=== PATIENT | female | born 1930 | race Caucasian/White ===

== ENCOUNTER 2017-12-01 19:37 | Emergency (ER) | payer MEDICARE, BC ==
[~2017-12-01] VITALS: Ht 152.4 cm; Wt 65.8 kg
[~2017-12-01 19:37] MED LIST: LISINOPRIL20 MG; MOTION RELIEF25 MG
[2017-12-01 20:04] VITALS: BP 172/73
== END 2017-12-01 20:08 | disposition home or self-care (01) ==
LOC: M.ERS 19:37
DX: S40.011A Contusion of right shoulder, initial encounter (principal); X58.XXXA Exposure to other specified factors, initial encounter; Y93.89 Activity, other specified; Y92.89 Other specified places as the place of occurrence of the external cause; Y99.8 Other external cause status

== ENCOUNTER 2018-02-19 17:34 | Inpatient (IN) | payer MEDICARE, BC, OTHER ==
[~2018-02-19] VITALS: Ht 152.4 cm; Wt 63.0 kg
[~2018-02-19 17:34] MED LIST changes: -LISINOPRIL20 MG; +LISINOPRIL20 MG PO
[2018-02-19 17:39] VITALS: BP 188/107
[2018-02-19 17:58] LABS: ABSOLUTE EOSINOPHILS 0.1 thou/uL (0.0-0.7); ABSOLUTE LYMPHOCYTES 1.1 thou/uL (0.8-5.3); ABSOLUTE MONOCYTES 0.4 thou/uL (0.0-1.2); ABSOLUTE NEUTROPHILS 3.3 thou/uL (1.6-8.1); BASOPHILS 0.8 %; EOSINOPHILS 2.3 %; HEMATOCRIT 48.3 % (37.0-47.0); HEMOGLOBIN 16.3 gm/dL (12.0-15.0); LYMPHOCYTES 22.5 %; MCH 30.2 pg (26.0-34.0); MCHC 33.8 g/dL (28.0-37.0); MCV 89.2 fL (80.0-100.0); MONOCYTES 8.1 %; MPV 7.8 fl. (7.2-11.1); NUCLEATED RBCS 0 /100WBC; PLATELET COUNT* 182 thou/uL (150-400); POLYS 66.3 %; RBC 5.42 mil/uL (4.20-5.00); RDW-CV 13.8 % (10.5-14.5)
[2018-02-19 18:07] LABS: ANION GAP 9 mmol/L (7-16); BUN 22 mg/dL (7-18); CALCIUM 9.6 mg/dL (8.5-10.1); CHLORIDE 106 mmol/L (98-107); CO2 28 mmol/L (21-32); GLUCOSE 176 mg/dL (70-99); POTASSIUM 3.9 mmol/L (3.5-5.1); SODIUM 143 mmol/L (136-145)
[2018-02-19 18:10] LABS: APTT 26.1 Seconds (25.0-31.3); PROTIME 10.1 Seconds (9.20-11.50)
[2018-02-19 18:18] LABS: ALBUMIN 3.8 g/dL (3.4-5.0); ALKALINE PHOSPHATASE 91 U/L (46-116); LIPASE 222 U/L (73-393); NT-PRO BRAIN NAT PEPTIDE 259 pg/mL (<300); SGOT 21 U/L (15-37); SGPT 35 U/L (30-65); TOTAL BILIRUBIN 0.4 mg/dL (<0.1-1.0); TOTAL PROTEIN 7.3 g/dL (6.4-8.2); TROPONIN-I LEVEL <0.06 ng/mL (<0.06)
[2018-02-19 19:30] VITALS: BP 136/53
--- NOTE | 2018-02-19 19:45 | NUR ---
RECEIVED REPORT FROM ER. TO ROOM, GAIT STEADY FROM CART TO BED. TELEMETRY APPLIED SHOWING SR. MARINET AT BEDSIDE. REVIEWED HOME MEDS. SEE ADMISSION ASSESSMENT AND HX.
[2018-02-19 20:30] VITALS: BP 153/56
[2018-02-19] MEDS ORDERED: BENADRYL25 MG PO (21:09)
[2018-02-19] MEDS ORDERED: MIRALAX17 GM PO (21:10)
--- NOTE | 2018-02-19 21:15 | NUR ---
PT INTO A-FIB WITH RVR AGAIN, ATTEMPTED VEGAL NOT NOT EFFECTIVE. PT RETURNED TO NSR ON HER OWN WITH RATE 68-79. WILL CONT TO MONITOR. CARDIZEM GTT HELD AT THIS TIME.
[2018-02-20] VITALS: BP 137/76
[2018-02-20 04:00] VITALS: BP 144/62
--- NOTE | 2018-02-20 05:45 | NUR ---
AWAKE MOST OF NIGHT. IVF INFUSING ORDERED. PT HAVING FREQ URINATION. PT SUSTAINED A-FIB WITH RATE 120-140'S. CARDIZEM INFUSION STARTED AT 0120 AT 5 MG/HR. CONVERTED TO SR AT APPROX 0140. MAINTAINED SR WITH CARDIZEM GTT. HS GOALS OF SAFETY ACHIEVED BUT NOT REST. HOURLY ROUNDING OBSERVED.
[2018-02-20 08:11] VITALS: BP 169/70
[2018-02-20 09:17] LABS: CHOLESTEROL 255 mg/dL (<200); HDL CHOLESTEROL 49 mg/dL (>40); LDL CHOLESTEROL 168 mg/dL (<100); SERUM ASSESSMENT Clear; TC:HDL 5.2 Ratio (Not establshd); TRIGLYCERIDE 194 mg/dL (<150); VLDL 39 mg/dL (<40)
[2018-02-20] MEDS ORDERED: DILTIAZEM 24HR180 M1 PO (09:41)
[2018-02-20] MEDS ORDERED: LIPITOR10 MG PO (09:41)
[2018-02-20] MEDS ORDERED: ELIQUIS5 MG PO (09:41)
[2018-02-20] MEDS ORDERED: ASPIR 8181 MG PO (09:41)
--- NOTE | 2018-02-20 10:49 | EKG ---
[place] [address] ELECTROCARDIOGRAM REPORT Name: JEWELS CASTILLO Room: [address] ADM IN M.R.#: [id number] Admission: 02/19/18 Attend Phys: Remigio Jean Discharge: Date of : [birth year] Report #: [id number] THIS REPORT FOR: //name// [facility] ED Test Date: 2018-02-19 Test Time: 17:40:23 Pat Name: JEWELS CASTILLO Department: Room: [facility] Gender: F Manager Utility: Aaron TRIMBLE : 1930 Requested By: Martina Dumont Order Number: [id number] MD: Ag Nayak Measurements Intervals [place] Rate: 142 P: NC: QRS: -21 QRSD: 100 T: 95 QT: 289 QTc: 444 Interpretive Statements Atrial fibrillation with rapid V-rate Borderline left axis deviation Anteroseptal infarct, old possible Repolarization abnormality, prob rate related No previous ECG available for comparison Electronically Signed On 02-20-2018 10:49:45 PIPING DESIGNER by Ag Nayak [email or web address] <ELECTRONICALLY SIGNED> By: Ag Nayak MD, FAC 02/20/18 1049 1740 1740 Ag Nayak MD, [facility] /EPI
--- NOTE | 2018-02-20 10:51 | EKG ---
[place] [address] ELECTROCARDIOGRAM REPORT Name: JEWELS CASTILLO Room: [address] ADM IN M.R.#: [id number] Admission: 02/19/18 Attend Phys: Remigio Jean Discharge: Date of : [birth year] Report #: [id number] THIS REPORT FOR: //name// [facility] ED Test Date: 2018-02-19 Test Time: 18:48:05 Pat Name: JEWELS CASTILLO Department: Room: [facility] Gender: F Core Microarchitect: Aaron TRIMBLE : 1930 Requested By: Martina Dumont Order Number: [id number] MD: Ag Nayak Measurements Intervals [place] Rate: 67 P: 60 NC: 174 QRS: -28 QRSD: 79 T: 62 QT: 412 QTc: 435 Interpretive Statements Sinus rhythm RSR' in V1 or V2, right VCD or RVH LVH by voltage No previous ECG available for comparison Electronically Signed On 02-20-2018 10:51:05 DRIER BELT CONVEYOR by Ag Nayak [email or web address] <ELECTRONICALLY SIGNED> By: Ag Nayak MD, [facility] 02/20/18 1051 1848 1848 Ag Nayak MD, [facility] /EPI
--- NOTE | 2018-02-20 12:23 | NUR ---
VSS, ASSUMED CARE OF PT THIS AM, ASSESSMENT PERFORMED AND CHARTED, FALL PRECAUTIONS IN PLACE AND CALL LIGHT IN REACH, PT IS A&O4, ON RA, IS TRACING SR ON THE MONITOR AT THIS TIME, PT GOAL IS TO COMPLETED STRESS TEST, PT FAN ANY PAIN AND IS UP AD KANG, WILL FOLLOW WITH PLAN OF CARE.
--- NOTE | 2018-02-20 15:17 | NUR ---
Pt is A&O. Resides at home with her kids. Independent. No DME. Pt will dc home today pending stress test results. No needs.
[2018-02-20 16:03] VITALS: BP 100/58
--- NOTE | 2018-02-20 16:25 | CARDNUC ---
[place] [address] CARDIAC NUCLEAR IMAGING REPORT Name: JEWELS CASTILLO Room: [address] IN [facility]#: [id number] Admission: 02/19/18 Attend Phys: Ellen Garnica Discharge: Date of : [birth year] Date of Service: 02/20/18 1625 Report #: [id number] THIS REPORT FOR: //name// APPROVED REPORT Imaging Protocol: Rest Tc-99m/Stress Tc-99m 1 day Study performed: 02/20/2018 08:32:00 Indication: afib/rvr Patient Location: In-Patient Room #: 210 Stress Tech: Lindsey Leahy Stress Nurse: Mary Duarte RN NM Tech:HUMBERTO Sanchez Ht: 5 ft 0 in Wt: 139 lbs BSA: 1.60 m2 BMI: 27.14 Medical History Medical History: new onset afib; aortic stenosis Medications: diltiazem, lisinopril, abixaban Allergies: NKDA Cardiac Risk Factors: Age, HTN, HLP Previous Cardiac Procedures: none Resting Data Rest SPECT myocardial perfusion imaging was performed in supine position 30 minutes following the intravenous injection of 12.0 mCi of Tc-99m Sestamibi. Time of rest injection: 1010 Date: 02/20/2018 Time of rest imagin The images were gated to evaluate regional wall motion and calculate left ventricular ejection fraction. Administration Route: IV Administration Site: Left AC Pharmacologic Stress Pharmacologic stress test was performed by injecting Regadenoson 0.4 mg IV push over 10-15 seconds immediately followed by the intravenous injection of 30.7 mCi of Tc-99m Sestamibi. Time of stress injection: 1135 Time of stress imagin Administration Route: IV Administration Site: Left AC Gated Stress SPECT was performed 40 [place] [address] CARDIAC NUCLEAR IMAGING REPORT Name: JEWELS CASTILLO Room: [address] IN ..#: [id number] Admission: 02/19/18 Attend Phys: Ellen Garnica Discharge: Date of : [birth year] Date of Service: 02/20/18 1625 Report #: [id number] injection. The images were gated to evaluate regional wall motion and calculate left ventricular ejection fraction. Stress only was performed in the Supine position. Stress Test Details Stress Test: Pharmacologic stress testing performed using 0.4 mg of regadenoson per 5 mL given IV over 10 seconds. HR Max Heart Rate (APMHR): 131 bpm Resting HR: 69 bpm Target HR (85% APMHR): 111 bpm Max HR Achieved: 97 bpm % of APMHR: 74 Recovery HR: 90 bpm BP Resting BP: 188/78 mmHg Max BP: 199/65 mmHg Recovery BP: 182/72 mmHg ECG Resting ECG: Sinus Rhythm Stress ECG: Sinus Rhythm ST Change: None Arrhythmia: None Recovery ECG: Sinus Rhythm Recovery ST Change: None, None Recovery Arrhythmia: None Clinical Reason for Termination: Completed protocol Stress Symptoms: mild SOA and chest tightness that resolved in recovery period The patient tolerated Lexiscan infusion without significant symptoms. Stress ECG Conclusion The baseline 12-lead EKG shows sinus rhythm without significant ST or T wave abnormality. EKGs obtained during and post Lexiscan infusion show sinus rhythm with no significant ST or T wave changes when compared to baseline. There were no stress-induced arrhythmias. Study Quality Study: Good Artifact: [place] [address] CARDIAC NUCLEAR IMAGING REPORT Name: JEWELS CASTILLO Room: [address]#: [id number] Admission: 02/19/18 Attend Phys: Ellen Garnica Discharge: Date of : [birth year] Date of Service: 02/20/18 1625 Report #: [id number] Study Data At rest, the left ventricular ejection fraction was 84%.. Post stress, the left ventricular ejection was 80%.. TID = 1.09. Perfusion Normal left ventricular perfusion. Wall Motion Normal left ventricular wall motion. Nuclear Conclusion ECG Findings: negative for ischemia Clinical Findings: negative for ischemia Nuclear Findings: negative for ischemia Exercise Capacity: not assessed Left Ventricular Function: normal Risk Study: low Myocardial perfusion images show no defect to suggest infarct or ischemia. Left ventricular systolic function appears normal on gated studies. This is a low risk study. <Conclusion> The baseline 12-lead EKG shows sinus rhythm without significant ST or T wave abnormality. EKGs obtained during and post Lexiscan infusion show sinus rhythm with no significant ST or T wave changes when compared to baseline. There were no stress-induced arrhythmias. <ELECTRONICALLY SIGNED> By: Magnus Ferro MD, FACC 02/20/18 1625 1625 1625 Magnus Ferro MD, FACC /INF
--- NOTE | 2018-02-20 17:26 | 2DMMODE ---
[place] [address] 2 D/M-MODE ECHOCARDIOGRAM Name: JEWELS CASTILLO Room: [address] IN [facility]#: [id number] Admission: 02/19/18 Attend Phys: Ellen Garnica Discharge: Date of : [birth year] Date of Service: 02/20/18 1726 Report #: [id number] THIS REPORT FOR: //name// APPROVED REPORT Study performed: 02/20/2018 10:24:41 EXAM: Comprehensive 2D, Doppler, and color-flow Echocardiogram Patient Location: In-Patient Room #: [facility] Status: routine BSA: 1.60 HR: 70 bpm BP: 169/70 mmHg Rhythm: NSR Other Information Study Quality: Good Indications Atrial Fibrillation Chest Pain 2D Dimensions IVSd: 9.03 (7-11mm) LVOT Diam: 18.79 (18-24mm) LVDd: 38.95 mm PWd: 9.03 (7-11mm) Ascending Ao: 25.77 (22-36mm) LVDs: 24.93 (25-40mm) Aortic Root: 27.12 mm Volumes Left Atrial Volume (Systole) LA ESV Index: 27.80 mL/m2 Aortic Valve AoV Peak Ty.: 2.74 m/s AO Peak Gr.: 30.13 mmHg LVOT Max P.01 mmHg AO Mean Gr.: 17.27 mmHg LVOT Mean P.79 mmHg LVOT Max V: 1.23 m/s AO V2 VTI: 65.61 cm LVOT Mean V: 0.76 m/s DIONISIO (VTI): 1.24 cm2 LVOT V1 VTI: 29.28 cm Mitral Valve MV Mean Gr.: 5.48 mmHg E/A Ratio: 1.16 MV Decel. Time: 351.14 [place] [address] 2 D/M-MODE ECHOCARDIOGRAM Name: JEWELS CASTILLO Room: [address] IN M.R.#: [id number] Admission: 02/19/18 Attend Phys: Ellen Garnica Discharge: Date of : [birth year] Date of Service: 02/20/18 1726 Report #: [id number] MV E Max Ty.: 1.81 m/s MV PHT: 101.83 ms MVA (PHT): 2.16 cm2 TDI E/Lateral E': 25.86 E/Medial E': 25.86 Medial E' Ty.: 0.07 m/s Lateral E' Ty.: 0.07 m/s Pulmonary Valve PV Peak Ty.: 0.90 m/s PV Peak Gr.: 3.27 mmHg Tricuspid Valve RAP Estimate: 5.00 mmHg TR Peak Gr.: 36.55 mmHg RVSP: 41.00 mmHg PA Pressure: 41.00 mmHg Left Ventricle The left ventricle is normal size. There is normal LV segmental wall motion. There is normal left ventricular wall thickness. Left ventricular systolic function is normal. LVEF is 65-70%. Severe diastolic dysfunction is present (restrictive filling). Right Ventricle The right ventricle is normal size. The right ventricular systolic function is normal. Atria The left atrium size is normal. The right atrium size is normal. Aortic Valve Moderate aortic valve sclerosis. Trace aortic regurgitation. Moderate aortic stenosis. Mitral Valve Moderate mitral annular calcification. Trace mitral regurgitation. Mild mitral stenosis. Tricuspid Valve The tricuspid valve is normal in structure. Trace tricuspid regurgitation. Moderate pulmonary hypertension. Pulmonic Valve The pulmonary valve is normal in structure. Trace pulmonic reg[place] [address] 2 D/M-MODE ECHOCARDIOGRAM Name: JEWELS CASTILLO Room: [address] IN [facility].#: [id number] Admission: 02/19/18 Attend Phys: Ellen Garnica Discharge: Date of : [birth year] Date of Service: 02/20/18 1726 Report #: [id number] Great Vessels The aortic root is normal in size. IVC is normal in size and collapses >50% with inspiration. Pericardium There is no pericardial effusion. <Conclusion> The left ventricle is normal size. There is normal left ventricular wall thickness. Left ventricular systolic function is normal. LVEF is 65-70%. Severe diastolic dysfunction is present (restrictive filling). Moderate aortic stenosis. Moderate mitral annular calcification. Mild mitral stenosis. Trace tricuspid regurgitation. Moderate pulmonary hypertension. IVC is normal in size and collapses >50% with inspiration. <ELECTRONICALLY SIGNED> By: Magnus Ferro MD, FACC 02/20/181725 25 25 Magnus Ferro MD, FACC /INF
[2018-02-20 17:35] VITALS: BP 100/58
--- NOTE | 2018-02-20 18:04 | NUR ---
VSS, COMPLETED AND FILLED OUT D/C ORDERS, PROVITED SCRCRIPTS, TOOK OUT IV, AND TELE MONITOR, PROVITED D/C INSTRUCTIONS, PT GATHERED BELONGINGS AND WAS TAKEN OUT BY STAFF ON WHEEL CHAIR TO CAR, HOURLY TOUNDS COMPLETED AND PT DENIESA ANY QUESTIONS AT TIME OF D/C
== END 2018-02-20 18:20 | disposition home or self-care (01) | DRG 309 ==
LOC: M.ERS 17:34 → M.2W 18:35 → M.TBA-ER 18:35 → M.2W 20:22
PROVIDERS: Nurse Practitioner Family; Personal Emergency Response Attendant; ADMIT Internal Medicine
DX: I48.0 Paroxysmal atrial fibrillation (principal); D68.69 Other thrombophilia; I35.0 Nonrheumatic aortic (valve) stenosis; I20.9 Angina pectoris, unspecified; I10 Essential (primary) hypertension; I47.1 Supraventricular tachycardia; I48.92 Unspecified atrial flutter; E78.5 Hyperlipidemia, unspecified; Z79.82 Long term (current) use of aspirin; Z79.899 Other long term (current) drug therapy

== ENCOUNTER 2018-03-18 15:42 | Inpatient (IN) | payer MEDICARE, BC, OTHER ==
[~2018-03-18] VITALS: Ht 152.4 cm; Wt 62.1 kg
[~2018-03-18 15:42] MED LIST changes: +ASPIR 8181 MG PO; +BENADRYL25 MG PO; +DILTIAZEM 24HR180 M1 PO; +ELIQUIS5 MG PO; +LIPITOR10 MG PO; +MIRALAX17 GM PO
[2018-03-18 15:49] VITALS: BP 171/88
[2018-03-18] MEDS ORDERED: TYLENOL325 MG PO (15:54)
[2018-03-18 16:06] LABS: ABSOLUTE BASOPHILS 0.1 thou/uL (0.0-0.2); ABSOLUTE EOSINOPHILS 0.1 thou/uL (0.0-0.7); ABSOLUTE LYMPHOCYTES 1.5 thou/uL (0.8-5.3); ABSOLUTE MONOCYTES 0.6 thou/uL (0.0-1.2); ABSOLUTE NEUTROPHILS 4.3 thou/uL (1.6-8.1); BASOPHILS 0.8 %; EOSINOPHILS 1.7 %; HEMATOCRIT 47.6 % (37.0-47.0); LYMPHOCYTES 23.2 %; MCH 30.3 pg (26.0-34.0); MCHC 33.5 g/dL (28.0-37.0); MCV 90.4 fL (80.0-100.0); MONOCYTES 8.6 %; MPV 7.7 fl. (7.2-11.1); NUCLEATED RBCS 0 /100WBC; PLATELET COUNT* 198 thou/uL (150-400); POLYS 65.7 %; RBC 5.27 mil/uL (4.20-5.00); RDW-CV 13.9 % (10.5-14.5); WBC 6.5 thou/uL (4.0-11.0)
[2018-03-18 16:18] LABS: APTT 27.3 Seconds (25.0-31.3); PROTIME 10.4 Seconds (9.20-11.50)
[2018-03-18 16:25] LABS: ANION GAP 11 mmol/L (7-16); BUN 25 mg/dL (7-18); CALCIUM 9.8 mg/dL (8.5-10.1); CHLORIDE 105 mmol/L (98-107); CO2 26 mmol/L (21-32); GLUCOSE 145 mg/dL (70-99); POTASSIUM 3.7 mmol/L (3.5-5.1); SODIUM 142 mmol/L (136-145)
[2018-03-18 16:44] LABS: ALBUMIN 4.3 g/dL (3.4-5.0); ALKALINE PHOSPHATASE 112 U/L (46-116); CK-MB MASS 1.6 ng/mL (<0.5-3.6); LIPASE 236 U/L (73-393); MAGNESIUM 2.2 mg/dL (1.8-2.4); NT-PRO BRAIN NAT PEPTIDE 206 pg/mL (<300); SGOT 22 U/L (15-37); SGPT 34 U/L (30-65); TOTAL BILIRUBIN 0.2 mg/dL (<0.1-1.0); TOTAL PROTEIN 7.5 g/dL (6.4-8.2); TROPONIN-I LEVEL <0.06 ng/mL (<0.06)
[2018-03-18 17:30] VITALS: BP 145/77
--- NOTE | 2018-03-18 18:31 | NUR ---
PATIENT PRESENTED TO 230 THIS EVENING FROM ER. PATIENT IS ALERT AND ORIENTED X 4. SHE DENIES PAIN AND DISCOMFORT. PATIENT PLACED ON TELE MONITOR. ORIENTED TO ROOM AND PROCEDURES. PATIENT EDUCATED ON FALL PROTOCAL. DIET ORDERED. TELE SHOWS A FLUTTER WITH OCCASIONAL VENTRICULAR ECTOPIES. RESTING IN BED AT THIS TIME. PLACED ON O2 AT 2 LITERS. PATIENT IS UP TO THE BSC WITH STANDBY ASSIST.
[2018-03-18 20:00] VITALS: BP 140/56
[2018-03-19] VITALS: BP 134/50
[2018-03-19 00:07] LABS: URINE BILIRUBIN NEGATIVE (Negative); URINE BLOOD NEGATIVE (Negative); URINE CLARITY CLEAR; URINE COLOR YELLOW; URINE GLUCOSE-RANDOM NEGATIVE (Negative); URINE KETONES NEGATIVE (Negative); URINE NITRITE-REFLEX NEGATIVE (Negative); URINE PROTEIN NEGATIVE (Negative); URINE SPECIFIC GRAVITY 1.015 (1.005-1.030); URINE UROBILINOGEN 0.2 E.U./dl (0.2-1.0)
[2018-03-19 00:08] LABS: URINE LEUKOCYTES-REFLEX 2+ (Negative)
[2018-03-19 00:21] LABS: AMP/METHAMP Negative (Negative); BARBITURATES Negative (Negative); BENZODIAZEPINES Negative (Negative); COCAINE Negative (Negative); METHADONE Negative (Negative); OPIATES Negative (Negative); PCP Negative (Negative); THC Negative (Negative)
[2018-03-19 00:42] LABS: BACTERIA-REFLEX >30 Many /HPF (None Seen); MUCUS 0-3 Light strn/LPF (None Seen); SQUAMOUS 0-3 Few /LPF (0-3); TRANSITIONAL EPITHEL CELL 0-3 Few /LPF (None Seen); URINE RBC 0-2 Rare /HPF (0-2); WBC CLUMPS Few (None Seen)
[2018-03-19 00:43] LABS: CASTS None Seen /LPF (None Seen); CRYSTALS None Seen /LPF (None Seen)
[2018-03-19 04:00] VITALS: BP 153/53
--- NOTE | 2018-03-19 04:34 | NUR ---
PATIENT RESTED IN BED, NO ACUTE CHANGES. PATIENT DID NOT SHOW SIGNS OF DISTRESS. FALL PRECAUTIONS IN PLACE, CALL LIGHT WITHIN REACH, HOURLY ROUNDING OBSERVED, BED ALARM ON.
[2018-03-19 05:24] LABS: HEMATOCRIT 42.5 % (37.0-47.0); HEMOGLOBIN 14.1 gm/dL (12.0-15.0); MCH 30.2 pg (26.0-34.0); MCHC 33.3 g/dL (28.0-37.0); MCV 90.8 fL (80.0-100.0); MPV 7.9 fl. (7.2-11.1); RBC 4.68 mil/uL (4.20-5.00); RDW-CV 14.1 % (10.5-14.5); WBC 5.1 thou/uL (4.0-11.0)
[2018-03-19 05:34] LABS: CALCIUM 8.9 mg/dL (8.5-10.1); CREATININE 0.9 mg/dL (0.6-1.3)
[2018-03-19 05:36] LABS: CHOLESTEROL 232 mg/dL (<200); HDL CHOLESTEROL 58 mg/dL (>40); LDL CHOLESTEROL 147 mg/dL (<100); TRIGLYCERIDE 138 mg/dL (<150); VLDL 28 mg/dL (<40)
[2018-03-19 05:38] LABS: SERUM ASSESSMENT CLEAR
[2018-03-19 07:30] VITALS: BP 146/54
--- NOTE | 2018-03-19 11:35 | NUR ---
MET WITH PT TO DISCUSS HOME SITUATION. DTR IN ROOM ALSO, LIVES NEXT DOOR. PT LIVES ALONE. SHE IS INDEPENDENT AND ACTIVE. SUES NO EQUIPMENT, DRIVES. PT DENIES ANY DC NEEDS. WILL FOLLOW
[2018-03-19 12:00] VITALS: BP 155/55
--- NOTE | 2018-03-19 15:29 | EKG ---
[place] [address] ELECTROCARDIOGRAM REPORT Name: JEWELS CASTILLO Room: [address] ADM IN M.R.#: [id number] Admission: 03/18/18 Attend Phys: Jessica Kumar MD Discharge: Date of : [birth year] Report #: [id number] THIS REPORT FOR: //name// [facility] ED Test Date: 2018-03-18 Test Time: 15:49:39 Pat Name: JEWELS CASTILLO Department: Room: [address] Gender: F Air Moving Technician: BULMARO : 1930 Requested By: Jessica Kumar Order Number: [id number] Reading MD: Ag Nayak Measurements Intervals [place] Rate: 119 P: AL: QRS: -25 QRSD: 96 T: 112 QT: 327 QTc: 461 Interpretive Statements Sinus tachycardia LVH with secondary repolarization abnormality Anterior infarct, old Compared to ECG 02/19/2018 18:48:05 Early repolarization now present Myocardial infarct finding now present Electronically Signed On 03-19-2018 15:29:04 SWIM COACH by Ag Nayak [email or web address] <ELECTRONICALLY SIGNED> By: Ag Nayak MD, [facility] 03/19/18 1529 1549 1549 Ag Nayak MD, [facility] /EPI
--- NOTE | 2018-03-19 15:30 | EKG ---
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: 1887 : 1930 Requested By: Josse Wiseman Order Number: [id number] MD: Ag Nayak Measurements Intervals [place] Rate: 60 P: 56 NV: 212 QRS: -23 QRSD: 106 T: 75 QT: 447 QTc: 447 Interpretive Statements Sinus rhythm Borderline prolonged NV interval Probable left atrial enlargement Borderline left axis deviation Anteroseptal infarct, age indeterminate possible ST elevation, consider inferior injury Compared to ECG 02/19/2018 18:48:05 Myocardial infarct finding now present ST (T wave) deviation now present Right ventricular hypertrophy no longer present Left ventricular hypertrophy no longer present Electronically Signed On 03-19-2018 15:30:34 MOLD INSPECTOR by Ag Nayak [email or web address] <ELECTRONICALLY SIGNED> By: Ag Nayak MD, [facility] 03/19/18 1530 57 57 Ag Nayak MD, [facility] /EPI
--- NOTE | 2018-03-19 15:35 | EKG ---
[place] [address] ELECTROCARDIOGRAM REPORT Name: JEWELS CASTILLO Room: [address] ADM IN M.R.#: [id number] Admission: 03/18/18 Attend Phys: Jessica Kumar MD Discharge: Date of : [birth year] Report #: [id number] THIS REPORT FOR: //name// [facility] Test Date: 2018-03-18 Test Time: 21:56:59 Pat Name: JEWELS KIRANMON Department: Room: [address] Gender: F Welding Machine Operator Electron Beam: [facility] : 1930 Requested By: Jessica Kumar Order Number: [id number] Reading MD: Ag Nayak Measurements Intervals [place] Rate: 58 P: 73 WI: 221 QRS: -27 QRSD: 113 T: 81 QT: 459 QTc: 451 Interpretive Statements Sinus rhythm Prolonged [place] interval Probable left atrial enlargement Borderline intraventricular conduction delay Abnormal R-wave progression, early transition Minimal ST elevation, anterior leads Compared to ECG 02/19/2018 18:48:05 First degree AV block now present ST (T wave) deviation now present Right ventricular hypertrophy no longer present Left ventricular hypertrophy no longer present Electronically Signed On 03-19-2018 15:34:51 NEW ACCOUNTS CLERK by Ag Nayak [email or web address] <ELECTRONICALLY SIGNED> By: Ag Nayak MD, [facility] 03/19/18 1534 2156 2156 Ag Nayak MD, [facility] /EPI
--- NOTE | 2018-03-19 15:35 | EKG ---
[place] [address] ELECTROCARDIOGRAM REPORT Name: JEWELS CASTILLO Room: [address] ADM IN M.R.#: [id number] Admission: 03/18/18 Attend Phys: Jessica Kumar MD Discharge: Date of : [birth year] Report #: [id number] THIS REPORT FOR: //name// [facility] Test Date: 2018-03-18 Test Time: 21:58:10 Pat Name: JEWELS CASTILLO Department: Room: [address] Gender: F Environmental Department Manager: [facility] : 1930 Requested By: Jessica Kumar Order Number: [id number] Reading MD: Ag Nayak Measurements Intervals [place] Rate: 59 P: 71 AL: 222 QRS: -29 QRSD: 112 T: 81 QT: 438 QTc: 434 Interpretive Statements Sinus rhythm Prolonged [place] interval Borderline intraventricular conduction delay Abnormal R-wave progression, early transition Minimal ST elevation, anterior leads Compared to ECG 02/19/2018 18:48:05 First degree AV block now present ST (T wave) deviation now present Right ventricular hypertrophy no longer present Left ventricular hypertrophy no longer present Electronically Signed On 03-19-2018 15:35:05 REACTOR OPERATOR by Ag Nayak [email or web address] <ELECTRONICALLY SIGNED> By: Ag Nayak MD, [facility] 03/19/18 1535 2158 2158 Ag Nayak MD, [facility] /EPI
[2018-03-19 16:25] VITALS: BP 137/48
--- NOTE | 2018-03-19 17:31 | NUR ---
ASSUMED CARE OF PT AT APPROXIMATELY 1215. RECEIVED REPORT FROM Mitchell PRAKASH. I AGREE WITH PREVIOUS NURSE ASSESSMENT. HOURLY ROUNDING IN PLACE. CLWR.
[2018-03-19 20:00] VITALS: BP 135/58
[2018-03-20] VITALS: BP 134/48
[2018-03-20 04:00] VITALS: BP 139/52
--- NOTE | 2018-03-20 07:20 | NUR ---
CHNAGE OF SHIFT BEDSIDE REPORT GIVEN PATIENT SEEN AT [facility], IN BED ASLEEP ASSUMED PATIENT CARE
--- NOTE | 2018-03-20 07:28 | NUR ---
PATIENT RESTED IN BED, DOES NOT APPEAR TO BE IN DISTRESS. PATIENT DENIES DIZZINESS OR FEELING OF LIGHT HEADEDNESS. CALL TO CARDIOLOGY REGARDING BRADYCARDIA, SEE ORDERS. CALL LIGHT WITHIN REACH, HOURLY ROUNDING OBSERVED.
[2018-03-20 08:00] VITALS: BP 129/53
[2018-03-20 12:36] VITALS: BP 138/54
[2018-03-20 17:08] VITALS: BP 133/51
[2018-03-20 20:00] VITALS: BP 120/51
[2018-03-21] VITALS: BP 149/62
--- NOTE | 2018-03-21 03:37 | NUR ---
RECIEVED REPORT AND ASSUMED CARE AT 1900. DOCTOR CHIROPRACTIC IN PLACE. BP LOW AT 120/51, PULSE NAN AT 54, OTHER THAN THAT VITAL SIGNS STABLE. PT IS UP WITH STANDBY ASSIST. PT DENIES ANY PAIN AT THIS TIME. HELD METOPROLOL DUE TO BP AND PULSE BEING LOW THEN A LITTLE LATER PT WAS GETTING A HEADACHE, GETTING DIZZY, AND PULSE WENT UP 90s TO 100s, SO I CHECKED BP AND IT WAS HIGH AT 174/71. I ALSO GOT A EKG WHICH SHOWED AFIB. SO I WENT AHEAD AND GAVE PT HER METOPROLOL AND SHE WAS HAVING ANXIETY SO I GAVE PRN ANXIETY MEDS ORDERED. WHICH HELPED BRING PT BACK INTO SR AND PT HAD RELIEF WITH HEADACHE AND ANXIETY. ASSESSMENT COMPLETED, DISCUSSED PLAN OF CARE, PT UNDERSTANDS. BED LOCKED, ALARM ON AND CALL LIGHT WITHIN REACH. FALL PRECAUTIONS IN PLACE. HOURLY ROUNDING DONE AND ALL NEEDS MET. NURSING WILL CONTINUE TO MONITOR.
[2018-03-21 04:00] VITALS: BP 115/50
[2018-03-21 08:00] VITALS: BP 141/60
--- NOTE | 2018-03-21 11:49 | EKG ---
[place] [address] ELECTROCARDIOGRAM REPORT Name: JEWELS CASTILLO Room: [address] ADM IN M.R.#: [id number] Admission: 03/18/18 Attend Phys: Jessica Kumar MD Discharge: Date of : [birth year] Report #: [id number] THIS REPORT FOR: //name// [facility] Test Date: 2018-03-20 Test Time: 22:42:10 Pat Name: ARTHURMARINA CASTILLO Department: Room: [address] Gender: F Cloth Trimmer Hand: UNK : 1930 Requested By: Guillermo Forbes Order Number: [id number] Reading MD: David Roy Measurements Intervals [place] Rate: 97 P: ND: QRS: -21 QRSD: 84 T: 88 QT: 370 QTc: 470 Interpretive Statements Atrial fibrillation Borderline left axis deviation Borderline repolarization abnormality Compared to ECG 03/18/2018 21:58:10 Sinus rhythm no longer present First degree AV block no longer present ST (T wave) deviation no longer present Electronically Signed On 03-21-2018 11:48:54 TELESALES MANAGER by David Roy [email or web address] <ELECTRONICALLY SIGNED> By: David Roy MD, [facility] 03/21/18 1148 2242 2242 David Roy MD, [facility] /EPI
[2018-03-21 12:00] VITALS: BP 129/63
--- NOTE | 2018-03-21 15:46 | NUR ---
PATINET RESTING IN BED. UP WITH STANDBY ASSISTANCE IN ROOM R/T RECENT DIZZINESS WITH AMBULATION. ALERT AND ORIENT X4 AND APPROPRIATE. PAITNET DENIES CHEST PAIN, SHORTNESS OF BREATH, NIGHT SWEATS, OR LEG PAIN WITH AMBULATION. MECHATRONICS ENGINEER SHOWS NOIRMAL SINUS RHYTHM AND AFIB INTERMITTENTLY. CARDIOLOGY PLAN FOR PACEMAKER PLACEMENT ON FRIDAY TO ALLOW FOR MEDICATION CONTROL OF A FIB WITHOUT BRADYCARDIA AND DIZZINESS. HOURLY ROUNDING COMPLETED FOR PATINET SAFETY AND PATIENT IN NO APPARENT SIGNS OF DISTRESS AT THIS TIME.
[2018-03-21 16:00] VITALS: BP 115/61
[2018-03-21 19:50] VITALS: BP 146/59
[2018-03-22] VITALS: BP 127/78
--- NOTE | 2018-03-22 01:36 | NUR ---
RECIEVED REPORT AND ASSSUMED CARE AT 1900. PRINT DEVELOPER IN PLACE. VITAL SIGNS STABLE. PT DENIES ANY PAIN AT THIS TIME BUT DID HAVE SOME ANXIETY AND PRN ANXIETY MEDS GIVEN ORDERED. PT IS UP WITH STANDBY DUE TO GETTING DIZZY WHEN STANDING. ASSESSMENT COMPLETED, DISCUSSED PLAN OF CARE, PT UNDERSTANDS. BED LOCKED AND CALL LIGHT WITHIN REACH. FALL PRECAUTIONS IN PLACE. HOURLY ROUNDING DONE AND ALL NEEDS MET. NURSING WILL CONTINUE TO MONITOR.
[2018-03-22 04:00] VITALS: BP 138/52
[2018-03-22 08:00] VITALS: BP 152/55
--- NOTE | 2018-03-22 08:23 | NUR ---
ASSUMED CARE OF PT 0730. PT RESTING IN BED, DAUGHTER AT BEDSIDE SLEEPING IN COT. PT STATES SHE DID NOT SLEEP WELL LAST NIGHT. PT A&0X4, DENIES ANY PAIN OR SHORTNESS OF BREATH AT THIS TIME. PT TRACING SB ON THE FISHER POT. ON RA SAT UPPER 90'S. PT UP SBA TO BATHROOM, UNSTEADY AT TIMES. PT GOAL FOR TODAY IS TO INCREASE ACTIVITY AND MONITOR HEART RATE/RHTYHM AND REMAIN IN SINUS RHYTHM. AM ASSESSMENT CHARTED. MEDICATIONS PER APR. PT REPOSITIONS SELF. HOURLY ROUNDING OBSERVED. BED IN LOW POSITION. CALL LIGHT WITHIN REACH. WILL CONTINUE PLAN OF CARE.
[2018-03-22 11:39] VITALS: BP 139/49
[2018-03-22 15:46] VITALS: BP 134/56
--- NOTE | 2018-03-22 18:01 | NUR ---
NO ACUTE CHANGES THROUGHOUT SHIFT. REFER TO CHARTING. PT ANXIOUS THIS AFTERNOON AND COMPLAINED OF A HEADACHE. TREATED WITH PRN TYLENOL AND XANAX WITH RELIEF. PT DAUGHTER AT BEDSIDE THROUGHOUT SHIFT AND UPDATED ON CURRENT PLAN OF CARE. PT CONTINUES TO TRACE SB/SR ON THE LITHOGRAPHERS PRINTER. ON RA SAT UPPER 90'S. PT UP WITH 1 ASSIST, WEAK AT TIMES. PT PROGRESSING TOWARDS GOALS. PROBABLE PACEMAKER PLACEMENT ON FRIDAY 03/24 PER CARDIOLOGY. MEDICATIONS PER APR. PT REPOSITIONS SELF. HOURLY ROUNDING OBSERVED. BED IN LOW POSITION. CALL LIGHT WITHIN REACH. WILL CONTINUE PLAN OF CARE.
[2018-03-22 19:45] VITALS: BP 143/77
[2018-03-23] VITALS: BP 163/60
--- NOTE | 2018-03-23 05:12 | NUR ---
PT HAS SLEPT WELL SINCE MIDNIGHT. UP WITH WALKER AND SBA TO BR TO VOID. TELE AFIB RATE IN 120'S AT TIMES, THEN SR/SB, THEN BOUNCING BACK TO AFIB, THEN SB ETC. NO LABS THIS MORNING. DNR. AOX4, ABLE TO USE CALL LITE AND MAKE NEEDS KNOWN. BED ALARM ON OVERNIGHT FOR SAFETY. KIERA VILLEGAS.
[2018-03-23 08:00] VITALS: BP 147/67
[2018-03-23 11:36] VITALS: BP 136/54
[2018-03-23 16:00] VITALS: BP 156/72
--- NOTE | 2018-03-23 16:35 | NUR ---
ASSUMED CARE OF PT ASSESSED AND DOCUMENTED. PT IS ON CARDIAC MONITER TRACING SR TO AFIB. VSS WNL. PT HAS BEEN AFEBRILE. SHE REMAINS ON ROOM AIR. PT HAS SOME ANXIETY R/T A RACING HEART.PT CONCERNED SHE MIGHT BEFORE PACWEMAKER PLACED TOMORROW. EDUCATION GIVEN ON DEMAND. GAVE PT A XANAX X1 AND SIT WITH HER UNTILL PT CALM AGAIN. PT HAD A TYLENOL X1 FOR A HEADACHE TODAY SHE RATED A 9 ON PAIN SCALE BUT STATED SHE ONLY WANTED I PILL WHICH WAS EFFECTIVE. HER DAUGHTER IS TO COME AND SPEND THE NIGHT WITH HER. PT HAD A BM X2 TODAY. PT TO BE NPO AFTER MIDNIGHT FOR PROCEDURE TOMORROW. HOURLY ROUNDING CONTINUES.
[2018-03-23 19:50] VITALS: BP 155/59
[2018-03-24] VITALS (7 sets, daily range): BP systolic 135–160; BP diastolic 48–75
--- NOTE | 2018-03-24 01:47 | NUR ---
RECIEVED REPORT AND ASSUMED CARE AT 1900. [facility] MONITOR IN PLACE. SYSTOLIC BP ELEVATED AND DISTOLIC A LITTLE LOW, OTHER THAN THAT VITAL SIGNS STABLE. PT IS UP [facility] STANDBY ASSIST. PT HAD A HEADACHE AND PRN PAIN MEDS GIVEN ORDERED. ASSESSMENT COMPLETED, DISCUSSED PLAN OF CARE, PT UNDERSTANDS. BED LOCKED AND CALL LIGHT WITHIN REACH. FALL PRECAUTIONS IN PLACE. HOURLY ROUNDING DONE AND ALL NEEDS MET. NURSING WILL CONTINUE TO MONITOR.
[2018-03-24 08:30] LABS: ABSOLUTE BASOPHILS 0.1 thou/uL (0.0-0.2); ABSOLUTE EOSINOPHILS 0.2 thou/uL (0.0-0.7); ABSOLUTE LYMPHOCYTES 1.8 thou/uL (0.8-5.3); ABSOLUTE MONOCYTES 0.5 thou/uL (0.0-1.2); ABSOLUTE NEUTROPHILS 2.5 thou/uL (1.6-8.1); EOSINOPHILS 3.1 %; HEMOGLOBIN 15.2 gm/dL (12.0-15.0); LYMPHOCYTES 35.7 %; MCH 30.5 pg (26.0-34.0); MCHC 33.6 g/dL (28.0-37.0); MCV 90.6 fL (80.0-100.0); MPV 7.8 fl. (7.2-11.1); NUCLEATED RBCS 0 /100WBC; PLATELET COUNT* 194 thou/uL (150-400); POLYS 50.2 %; RBC 4.97 mil/uL (4.20-5.00); RDW-CV 14.5 % (10.5-14.5); WBC 4.9 thou/uL (4.0-11.0)
[2018-03-24 08:37] LABS: CALCIUM 9.3 mg/dL (8.5-10.1); POTASSIUM 4.3 mmol/L (3.5-5.1)
[2018-03-24 08:40] LABS: APTT 26.1 Seconds (25.0-31.3); PROTIME 10.5 Seconds (9.20-11.50)
--- NOTE | 2018-03-24 11:19 | NUR ---
CONTINUE TO FOLLOW. MET WITH PT AND DTR/MARY. PT TO HAVE PACEMAKER TODAY, HOPES TO GO HOME TOMORROW. DISCUSSED POSSIBLE HH, PT IN AGREEMENT NOW, DISCUSSED OPTIONS, CHOSE [facility]. CALLED AND FAXED INITIAL REFERRAL TO [facility]
[2018-03-25] VITALS: BP 148/70
--- NOTE | 2018-03-25 03:04 | NUR ---
RECIEVED REPORT AND ASSUMED CARE AT 1900. SENIOR WRITER IN PLACE. VITAL SIGNS ARE STABLE. DRESSING FROM PACEMAKER IS INTACT AND CLEAN/DRY. PT HAS SOME PAIN WHERE PACEMAKER PLACE IN LEFT UPPER CHEST AND HEADACHE PRN PAIN MEDS GIVEN ORDERED, HELPED MANAGE PAIN. PT IS UP WITH STANDBY. ASSESSMENT COMPLETED, DISCUSSED PLAN OF CARE. FALL PRECAUTIONS IN PLACE. HOURLY ROUNDING DONE AND ALL NEEDS MET. NURSING WILL CONTINUE TO MONITOR.
[2018-03-25 04:00] VITALS: BP 180/87
[2018-03-25 08:53] VITALS: BP 150/73
--- NOTE | 2018-03-25 10:31 | NUR ---
ORDERS RECEIVED FOR DC HOME WITH HH, CALLED AND FAXED DC ORDERS TO [facility].
[2018-03-25 12:00] VITALS: BP 122/48
[2018-03-25] MEDS ORDERED: SORINE 80 MG TA80 M1 PO (12:29)
[2018-03-25] MEDS ORDERED: ELIQUIS2.5 MG PO (12:32)
--- NOTE | 2018-03-25 13:12 | EKG ---
[place] [address] ELECTROCARDIOGRAM REPORT Name: JEWELS CASTILLO Room: [address] ADM IN M.R.#: [id number] Admission: 03/18/18 Attend Phys: Jessica Kumar MD Discharge: Date of : [birth year] Report #: [id number] THIS REPORT FOR: //name// [facility] Test Date: 2018-03-25 Test Time: 08:05:44 Pat Name: JEWELS CASTILLO Department: Room: [address] Gender: F Business Operations Consultant: : 1930 Requested By: Magnus Ferro Order Number: [id number] Servando MD: Maximiliano Leslie Measurements Intervals [place] Rate: 91 P: 70 [place]: 51 QRS: -40 QRSD: 81 T: 103 QT: 336 QTc: 414 Interpretive Statements atrial fibrillation with occasional paced beat No further analysis attempted due to paced rhythm Compared to ECG 03/20/2018 22:42:10 paced beats now noted Electronically Signed On 03-25-2018 13:12:38 DRAGGER OUT by Maximiliano Leslie [email or web address] <ELECTRONICALLY SIGNED> By: Maximiliano Leslie MD, [facility] 03/25/18 1312 0805 [id number] Maximiliano Leslie MD, [facility] /EPI
--- NOTE | 2018-03-25 13:14 | EKG ---
[place] [address] ELECTROCARDIOGRAM REPORT Name: JEWELS CASTILLO Room: [address] ADM IN M.R.#: [id number] Admission: 03/18/18 Attend Phys: Jessica Kumar MD Discharge: Date of : [birth year] Report #: [id number] THIS REPORT FOR: //name// [facility] Test Date: 2018-03-25 Test Time: 08:06:39 Pat Name: JEWELS CASTILLO Department: Room: [address] Gender: F Vp Strategy: : 1930 Requested By: Magnus Ferro Order Number: [id number] Servando MD: Maximiliano Leslie Measurements Intervals [place] Rate: 106 P: [place]: QRS: -24 QRSD: 115 T: 71 QT: 368 QTc: 489 Interpretive Statements atrial fibrillation with occasional paced beat No further rhythm analysis attempted due to paced rhythm Electronically Signed On 03-25-2018 13:13:55 SPACECRAFT SYSTEMS ENGINEER by Maximiliano Leslie [email or web address] <ELECTRONICALLY SIGNED> By: Maximiliano Leslie MD, [facility] 03/25/18 1313 0806 5 Maximiliano Leslie MD, FACC /EPI
--- NOTE | 2018-03-25 13:35 | NUR ---
PT ALERT AND ORIENTED. TELE TRACKING AFIB WITH FREQUENT RUN PVC'S AT BEGINNING OF SHIFT, RETURN TO NSR AT APPROX 0900 AND ALL VSS ON ROOM AIR. DENIES CP, SOA. LEFT SHOULDER INCISION SITE WNL. SLING PLACED ON PT THIS AM AND EDUCATED ON LIMITED ROM. PT LOOKING FORWARD TO DC THIS AFTERNOON. EDUCATED ON SAFETY AND PLAN OF CARE. PLEASE SEE ASSESSMENT FOR ADDITIONAL INFORMATION. WILL CONTINUE TO MONITOR
--- NOTE | 2018-03-27 15:01 | CARD ---
[address] [address] CARDIAC CATH REPORT Name: JEWELS CASTILLO Room: [address]#: [id number] Admission: 03/18/18 Attend Phys: Jessica Kumar MD Discharge: 03/25/18 Date of : [birth year] Report #: [id number] THIS REPORT FOR: //name// APPROVED REPORT Study performed: 03/24/2018 13:03:05 Patient Status: In-Patient Room #: 230 Event Personnel: Magnus Ferro Analytics Leader, Deana Ordonez RN Veterinary Medicine Teacher, Vandana Jessica RTR Monitor, Vik Ruiz Scrub Exam: Generator Change for a Dual Chamber implantable defibrillator Indications: primary prevention The patient is a 87 year-old female with a history of cardiomyopathy. Intraoperative Conscious Sedation Sedation start time: 1313 Case end Time: 1343 Fentanyl 50 mcg Versed 2 mg Implanted Devices: Iperia 7 DRT DF1 pro-MRI, model #844090, serial #[id number] dual-chamber pacing ICD generator. Procedure After informed consent was obtained the area of the left chest was prepped and draped in sterile fashion. Local anesthesia was achieved with 1% lidocaine. Next an initial incision was made over the existing generator. The generator was then explanted using electrocautery and blunt dissection. The pocket then was flushed with antibiotic solution. The existing generator was detached from the ventricular pacing defibrillator leads and atrial lead. A dual-chamber pacing ICD lead was then attached to the atrial and ventricular leads. The device and redundant leads were then placed within the device pocket. The deep tissues were closed with interrupted stitches of 2-0 Vicryl. The skin incision was then closed with a single subcuticular stitch of 4-0 Vicryl. Several Steri-Strips were placed across the incision. A sterile dressing was then covered with a Tegaderm. The patient tolerated the procedure well without complication. Conclusion 1. Dual-chamber pacing ICD generator at elective replacement. 2. Successful replacement of dual [place] [address] CARDIAC CATH REPORT Name: JONATHANJEWELS Room: [address]#: [id number] Admission: 03/18/18 Attend Phys: Jessica Kumar MD Discharge: 03/25/18 Date of : [birth year] Report #: [id number] Recommendations 1. Follow-up site check in one week. 2. Follow-up ICD <ELECTRONICALLY SIGNED> By: Magnus Ferro MD, [facility] 03/27/18 1501 1501 [facility] Tami Ferro MD, FACC /INF
== END 2018-03-25 17:50 | disposition home health service (06) | DRG 242 ==
LOC: M.ERS 15:42 → M.TBA-ER 16:37 → M.2W 16:37
PROVIDERS: Family Medicine; Internal Medicine Cardiovascular Disease; ADMIT Family Medicine
PROC: 0JH606Z Insertion of Pacemaker, Dual Chamber into Chest Subcutaneous Tissue and Fascia, Open Approach (ICD-10-PCS; principal; 2018-03-24)
PROC: 02H63JZ Insertion of Pacemaker Lead into Right Atrium, Percutaneous Approach (ICD-10-PCS; 2018-03-24)
PROC: 02HK3JZ Insertion of Pacemaker Lead into Right Ventricle, Percutaneous Approach (ICD-10-PCS; 2018-03-24)
DX: I49.5 Sick sinus syndrome (principal); I50.33 Acute on chronic diastolic (congestive) heart failure; D68.69 Other thrombophilia; I48.0 Paroxysmal atrial fibrillation; I11.0 Hypertensive heart disease with heart failure; Z66 Do not resuscitate; H35.30 Unspecified macular degeneration; E78.5 Hyperlipidemia, unspecified; F41.9 Anxiety disorder, unspecified; K59.09 Other constipation; I35.0 Nonrheumatic aortic (valve) stenosis; Z79.899 Other long term (current) drug therapy; Z79.82 Long term (current) use of aspirin; Z98.49 Cataract extraction status, unspecified eye